=== PATIENT | female | born 1945 | race Caucasian/White ===

== ENCOUNTER 2017-05-20 09:51 | Day surgery (SDC) | payer MEDICARE, BC ==
[~2017-05-20] VITALS: Ht 154.9 cm; Wt 74.9 kg
[~2017-05-20 09:51] MED LIST: AMLO-145; BENA10TA; INSU100V19; LEVO50TA83; LOVA20TA; MELO-37; METF-480; TRAM-40
[2017-05-20 11:06] VITALS: Ht 154.9 cm; Wt 74.9 kg
[2017-05-20] MEDS ORDERED: OXYB5SYR2 PO (11:15)
[2017-05-20] MEDS ORDERED: DEXTROSE 50% 50 ML SYRINGE ONE (11:26)
[2017-05-20] MEDS ORDERED: PROPOFOL 40 ML ONE (11:29)
[2017-05-20 11:33] VITALS: BP 141/63; PULSE 82; RESP 17
[2017-05-20] MEDS ORDERED: PROPOFOL 20 ML ONE (12:33)
--- NOTE | 2017-05-20 12:42 | OPPN ---
Date/Time of Note Date/Time of Note DATE: 05/20/17 TIME: 12:39 Operative Report Preoperative Diagnosis Upper abdominal pain Change in bowel habit Postoperative Diagnosis Hiatal hernia Gastroesophageal reflux disease Gastritis with erosions Rectal polyp Internal hemorrhoids Operation/Procedure Performed Esophagogastroduodenoscopy and biopsy Colonoscopy and biopsy Provider: ALBERT WHEELER MD Anesthesia Type: MAC Estimated blood loss: none Transfusion Required: no Specimens Gastric mucosal biopsy Biopsy of the rectal polyp Grafts/Implants: none Complications: no ALBERT WHEELER MD May 20, 2017 12:42
[2017-05-20 13:10] VITALS: BP 123/68; PULSE 78; RESP 14
--- NOTE | 2017-05-20 13:23 | GILP ---
DATE OF PROCEDURE: 05/20/2017 PROCEDURE PERFORMED: 1. Esophagogastroduodenoscopy and biopsy. 2. Colonoscopy and biopsy. SURGEON: Stephie Reardon MD. PREOPERATIVE DIAGNOSES: 1. Abdominal pain. 2. Change in the bowel habits. 3. The patient had last screening colonoscopy more than 10 years ago. POSTOPERATIVE DIAGNOSES: 1. Hiatal hernia. 2. Gastroesophageal reflux disease. 3. Gastritis with erosions. 4. Gastric mucosal biopsies were taken for Helicobacter pylori test. 5. Colonoscopy all the way to the cecum. 6. Small rectal polyp was removed using the biopsy forceps. 7. Internal hemorrhoids. INDICATIONS FOR PROCEDURES: Ms. Toña Beck is a 71-year- old female patient who had upper abdominal pain not responding to therapy. She also noticed change in the bowel habits. She had last screening colonoscopy more than 10 years ago. So the patient was scheduled for endoscopy and colonoscopy. The procedures and possible complications were well explained to the patient. She understood and consented to the procedure. DESCRIPTION OF PROCEDURE: Under influence of anesthesia, the gastroscope was carefully introduced into the esophagus and under direct vision it was advanced to the stomach, into the pylorus, into the duodenal bulb, and descending duodenum. FINDINGS: Esophagus: The patient had hiatal hernia and gastroesophageal reflux disease. Stomach: She had gastritis with erosions. Gastric mucosal biopsies were taken for H pylori test. Duodenum was normal. The colonoscope was carefully introduced in the rectum and under direct vision it was advanced all the way to the cecum. FINDINGS: The patient had a small rectal polyp and it was removed using the biopsy forceps. She had internal hemorrhoids. She tolerated the procedures very well. There was no complication from the procedures. At the end of procedure, she was awake with stable vital signs and she was discharged home in the care of her family. IMPRESSION: Please see postop diagnoses. PLAN: 1. Omeprazole 40 mg p.o. in the morning. 2. Next screening colonoscopy in 10 years. Dictated By: MD LORA Betts/melany/kassidy /Document#: [id number] CC: Stephie Reardon MD;*EndCC*
== END 2017-05-20 18:13 | disposition home or self-care (01) ==
LOC: GIL 09:51
PROVIDERS: ATTEND Internal Medicine Gastroenterology
DX: R19.4 Change in bowel habit (principal); K62.1 Rectal polyp; K44.9 Diaphragmatic hernia without obstruction or gangrene; K21.9 Gastro-esophageal reflux disease without esophagitis; K29.60 Other gastritis without bleeding; K64.8 Other hemorrhoids; E11.9 Type 2 diabetes mellitus without complications; I10 Essential (primary) hypertension; E03.9 Hypothyroidism, unspecified; E78.5 Hyperlipidemia, unspecified
CPT/HCPCS: 82962; 87081; 88305

== ENCOUNTER 2017-09-02 13:46 | Day surgery (SDC) | payer MEDICARE, BC ==
[~2017-09-02] VITALS: Ht 160 cm; Wt 75.9 kg
[2017-09-02] VITALS (9 sets, daily range): BP systolic 100–139; BP diastolic 51–67; PULSE 60–77; RESP 16–28; Ht 160 cm; Wt 75.9 kg
[~2017-09-02 13:46] MED LIST changes: +CEFAZOLIN 1 GM INJ ONE; +LACTATED RINGER'S 1,000 ML IV* SCH; +OXYB5SYR2 PO
[2017-09-02] MEDS ORDERED: AMLO5TAB4 PO (14:32)
[2017-09-02] MEDS ORDERED: ATOR40TA68 PO (14:32)
[2017-09-02] MEDS ORDERED: OXYB5TAB22 PO (14:33)
[2017-09-02] MEDS ORDERED: LOSA25TA5 PO (14:33)
[2017-09-02] MEDS ORDERED: LEVO50TA71 PO (14:33)
[2017-09-02] MEDS ORDERED: OMEP40CA6 PO (14:33)
[2017-09-02] MEDS ORDERED: LANT3I SC (14:34)
[2017-09-02] MEDS ORDERED: LIDOCAINE 1% (MPF) 30 ML INJ ONE (15:37)
[2017-09-02] MEDS ORDERED: PROPOFOL 100 ML ONE (15:37)
[2017-09-02] MEDS ORDERED: BUPIVACAINE 0.5% (SDV) 30 ML INJ ONE (15:37)
[2017-09-02] MEDS ORDERED: FENTAnyl 50 MCG/ML VIAL ONE (15:38)
[2017-09-02] MEDS ORDERED: LIDOCAINE 2% (SDV) 5 ML INJ ONE (15:38)
[2017-09-02] MEDS ORDERED: BUPIVACAINE 0.5% (MPF) 30 ML INJ EPI ONE (15:42)
[2017-09-02] MEDS ORDERED: LIDOCAINE 1% (MPF) 30 ML INJ INJ ONE (15:42)
[2017-09-02] MEDS ORDERED: hydrALAzine 20 MG INJ IV PRN (16:00)
[2017-09-02] MEDS ORDERED: METOCLOPRAMIDE 10 MG INJ IV PRN (16:00)
[2017-09-02] MEDS ORDERED: MEPERIDINE 25 MG INJ IV PRN (16:00)
[2017-09-02] MEDS ORDERED: INSULIN ASPART [NOVOLOG] 3 ML PEN SC ONE (16:00)
[2017-09-02] MEDS ORDERED: EPHEDrine SULFATE 50 MG/5 ML SYG IV PRN (16:00)
[2017-09-02] MEDS ORDERED: OXYCODONE/ACETAMINOPHEN (5/325) TAB PO PRN ×2 (16:00)
[2017-09-02] MEDS ORDERED: DIPHENHYDRAMINE 50 MG INJ IV PRN (16:00)
[2017-09-02] MEDS ORDERED: ONDANSETRON 4 MG INJ IV PRN (16:00)
[2017-09-02] MEDS ORDERED: HYPOGLYCEMIA PROTOCOL when Glucose is <70 mg/dL or symptomatic <90 mg/dL. XX ONE (16:00)
[2017-09-02] MEDS ORDERED: LABETALOL HCL 20MG INJ IV PRN (16:00)
[2017-09-02] MEDS ORDERED: HYDROmorphONE (0.2 MG/ML) 10ML SYG IV PRN ×2 (16:00)
[2017-09-02] MEDS ORDERED: MIDAZOLAM 1 MG/ML 2 ML INJ IV PRN (16:00)
[2017-09-02] MEDS ORDERED: FENTAnyl 50 MCG/ML VIAL IV PRN ×3 (16:00)
--- NOTE | 2017-09-02 16:04 | HPN ---
Date/Time of Note Date/Time of Note DATE: 09/02/17 TIME: 16:03 Interval H&P Admission Note Pt. seen H&P reviewed: No system changes RADHA SAUCEDA Sep 02, 2017 16:04
[2017-09-02] MEDS ORDERED: DEXAMETHASONE 4 MG/ML 1 ML INJ ONE (16:16)
[2017-09-02] MEDS ORDERED: ONDANSETRON 4 MG INJ ONE (16:37)
--- NOTE | 2017-09-02 16:51 | OPPN ---
Date/Time of Note Date/Time of Note DATE: 09/02/17 TIME: 16:50 Operative Report Preoperative Diagnosis Right carpal tunnel syndrome, recurrent. Right small finger trigger. Right small finger retinacular cyst Postoperative Diagnosis Right carpal tunnel syndrome, recurrent. Right small finger trigger. Right small finger retinacular cyst Operation/Procedure Performed Revision Right carpal tunnel release, open. Right small finger trigger release. Excision of right small finger retinacular cyst Surgeon see signature line executive sales assistant none Anesthesia: general Estimated blood loss: 0 - 10 ml's Transfusion Required none Specimen none Grafts/Implants none Complications none RADHA SAUCEDA Sep 02, 2017 16:51
[2017-09-02] MEDS ORDERED: GLUCAGON 1 MG INJ IM PRN (17:00)
[2017-09-02] MEDS ORDERED: GLUCOSE GEL 15 GRAM TUBE PO PRN ×2 (17:00)
[2017-09-02] MEDS ORDERED: GLUCOSE GEL 15 GRAM TUBE BUCCAL PRN (17:00)
[2017-09-02] MEDS ORDERED: DEXTROSE 50% 50 ML SYRINGE IV PRN ×2 (17:00)
--- NOTE | 2017-09-02 17:39 | OPR ---
DATE OF OPERATION: 09/02/2017 SURGEON: Bonifacio Magana MD ANESTHESIA: General. PREOPERATIVE DIAGNOSES: 1. Right carpal tunnel syndrome, recurrent. 2. Right small finger trigger finger. 3. Right hand retinacular cyst. POSTOPERATIVE DIAGNOSES: 1. Right carpal tunnel syndrome, recurrent. 2. Right small finger trigger finger. 3. Right hand retinacular cyst. PROCEDURE: 1. Right revision carpal tunnel release, open. 2. Right small finger trigger finger release. 3. Excision of right hand retinacular cyst. OPERATIVE FINDINGS: 1. Compression of the median nerve at the carpal tunnel at the proximal aspect near the wrist crease. 2. Stenosing tenosynovitis at the right small finger flexor sheath A1 marcus with retinacular cyst at the flexor sheath. INDICATIONS FOR PROCEDURE: A 71-year-old female with longstanding right hand pain. She failed conservative management and elected to proceed with surgical intervention, understanding risks and benefits. DESCRIPTION OF PROCEDURE: The patient was seen in the preoperative area. All further questions were answered. Again, she gave informed consent and understood risks and benefits. She was taken to the operative suite and placed in the supine position. She was placed under general anesthesia and tourniquet placed on right upper extremity. Ancef 2 grams IV given and the right upper extremity was prepped with Chloraprep stick and draped usual sterile fashion. Esmarch bandage was used to exsanguinate the extremity and tourniquet inflated to 250 mmHg. A 2 cm incision at the base of the palm was utilized with sharp dissection carried down through skin and subcutaneous tissue. The palmar aponeurosis was identified and was incised along its ulnar border. There was scar tissue in the region from previous carpal tunnel release and this was carefully dissected through down to the level of the carpal tunnel itself. Care was taken to stay on the ulnar aspect of the scar tissue and transverse carpal ligament approximately 3 mm radial to the hook of the hamate. I visualized the carpal tunnel contents after making a longitudinal lisa in the scar tissue and the remnant of the ligament. I confirmed that I was on the ulnar aspect of the carpal tunnel and I carefully dissected distally to the most distal extent until the carpal tunnel contents were completely decompressed distally. Attention was turned proximally and there was significant compression at the proximal aspect, which may have been incomplete release previously or the transverse carpal ligament scarring and becoming more compressive. The ligament was divided proximally and there was complete decompression of the contents. The wound was copiously irrigated and the skin closed with 4-0 nylon. Attention was turned to the small finger and a longitudinal incision over the flexor sheath at the level of the A1 marcus was utilized with sharp dissection carried down through skin and subcutaneous tissue. Scissor dissection brought me down to the flexor sheath and the sheath was incised longitudinally. The proximal aspect was visualized and was divided along its midline. There was some tenosynovitis within the flexor sheath, which was debrided. There was also a retinacular cyst along the radial aspect of the flexor sheath, which was excised. Attention was turned back distally and the A1 marcus was visualized and was divided along its midline to its most distal extent. The flaps of the A1 marcus opened with scissor spreading and the tendons were decompressed. A flexor traction tenolysis was performed and the tendons glided nicely. The wound was copiously irrigated and the skin closed with 4-0 nylon. Xeroform placed in the wound followed by sterile gauze, Webril, and an Stuart bandage. Tourniquet deflated after 20 minutes and patient was awakened from anesthesia. She was taken to the recovery suite in stable condition, tolerated the procedure well without complications. SPECIMENS: None. ESTIMATED BLOOD LOSS: 5 mL. COUNTS: Sponge and needle counts correct. TOURNIQUET TIME: 20 minutes. CONDITION ON DISCHARGE: Stable. Dictated By: Bonifacio Magana MD /melany/pat /Document#: [id number]
== END 2017-09-02 18:23 | disposition home or self-care (01) ==
LOC: SDS 13:46
PROVIDERS: ATTEND Orthopaedic Surgery Hand Surgery
DX: G56.01 Carpal tunnel syndrome, right upper limb (principal); M65.321 Trigger finger, right index finger; L72.9 Follicular cyst of the skin and subcutaneous tissue, unspecified; I10 Essential (primary) hypertension; E11.9 Type 2 diabetes mellitus without complications; Z79.4 Long term (current) use of insulin; Z79.82 Long term (current) use of aspirin
CPT/HCPCS: 26055; 26160; 64721; 82962; J0690; J1100; J1170; J2405; J3010; J1815